=== PATIENT | male | born 1975 | race Caucasian/White ===

== ENCOUNTER 2019-11-25 18:44 | Emergency (ER) | payer MEDICAID, OTHER ==
[~2019-11-25] VITALS: Ht 170.2 cm; Wt 127.3 kg
[~2019-11-25 18:44] MED LIST: AMOX1TAB15 PO; NOCURR
[2019-11-25 19:48] VITALS: BP 110/57
== END 2019-11-25 19:59 | disposition home or self-care (01) ==
LOC: EMS 18:45
DX: Z20.828 Contact with and (suspected) exposure to other viral communicable diseases (principal)
CPT/HCPCS: 87426